=== PATIENT | male | born 1995 | race Caucasian/White ===

== ENCOUNTER → 2017-06-02 02:14 | Emergency (ER) | payer OTHER ==
[~2017-06-02 02:14] MED LIST: NS 0.9% 1000 ML* 2,000 ML IV ONE; Ondansetron INJ* 2 MG/ML VIAL IV ONE
[2017-06-02 03:50] LABS: Hematocrit 39 % (42-52); Hemoglobin 13.8 g/dl (14.0-18.0); Mean Corpuscular HGB Conc 35 g/dl (31-36); Mean Corpuscular Hemoglobin 32 pg (27-31); Mean Corpuscular Volume 91 fL (80-94); Mean Platelet Volume 9 um3 (7.4-10.4); Red Blood Count 4.35 10^6/ul (4.0-5.4); Red Cell Distribution Width 13 % (10.5-15)
[2017-06-02 04:03] LABS: Albumin 4.1 g/dL (3.2-5.2); BUN/Creatinine Ratio 13.3 (8-20); Calcium 8.6 mg/dL (8.6-10.3); EGFR African American 169.1 (>60); EGFR Non-African American 131.5 (>60); Globulin 3.2 g/dL (2-4); Potassium 3.3 mmol/L (3.5-5.0); Total Bilirubin 0.9 mg/dL (0.2-1.0); Total Protein 7.3 g/dL (6.4-8.9)
[2017-06-02 06:10] VITALS: BP 93/60
--- NOTE | 2017-06-02 06:47 | ED ---
Gloria Santo Rebecca, scribed for Hans Randhawa on 06/02/17 at 0328 . Substance Abuse/Use - HPI Summary HPI Summary: Pt is a 22 y/o M who presents to ED accompanied by two friends, c/o EtOH intoxication. Friends have been with the pt since 29, after which he has not consumed any more EtOH. Pt currently presents with unresponsiveness. Level 5 caveat due to EtOH intoxication. - History Of Current Complaint Chief Complaint: EDSubstanceAbuse Stated Complaint: ALCOHOL CONSUMPTION Hx Obtained From: Family/Director Loan - Friends Hx From Patient Unobtainable Due To: Other - Level 5 caveat due to EtOH intoxication Ingestion History: Type/Name Of Drug - EtOH Overdose Characteristics: Oral Associated Signs And Symptoms: Other: - Unresponsiveness - Allergies/Home Medications Allergies/Adverse Reactions: Allergies Allergy/AdvReac Type Severity Reaction Status Date / Time No Known Allergies Allergy Verified 06/02/17 03:31 PMH/Surg Hx/FS Hx/Imm Hx Previously Healthy: No - UNKNOWN - Level 5 caveat due to EtOH intoxication Infectious Disease History: Unable to Obtain/Confirm - Family History Known Family History: Positive: Unknown - Level 5 caveat due to EtOH intoxication - Social History Alcohol Use: Weekly Substance Use Type: Reports: None Smoking Status (MU): Never Smoked Tobacco Review of Systems - ROS Summary Review of Systems Summary: Level 5 caveat due to EtOH intoxication. Positive: Other - EtOH intoxication, unresponsiveness All Other Systems Reviewed And Are Negative: No Physical Exam - Summary Physical Exam Summary: Appearance: Well appearing, no pain distress Skin: warm, dry, reflects adequate perfusion Head/face: normal Eyes: EOMI, MARIE ENT: normal Neck: supple, nontender Respiratory: CTA, breath sounds present Cardiovascular: RRR, pulses symmetrical Abdomen: nontender, soft Bowel: present Musculoskeletal: normal, strength/ROM intact Psych: Lethargic Triage Information Reviewed: Yes Vital Signs On Initial Exam: Initial Vitals Temp Pulse Resp BP Pulse Ox 96.9 F 46 24 104/61 98 06/02/17 02:20 06/02/17 02:20 06/02/17 02:20 06/02/17 02:20 06/02/17 02:20 Vital Signs Reviewed: Yes - [place] Coma Scale Coma Scale Total: 7 Diagnostics - Vital Signs Vital Signs Temp Pulse Resp BP Pulse Ox 06/02/17 02:20 96.9 F 46 24 104/61 98 - Laboratory Lab Results: Lab Results 06/02/17 06/02/17 Range/Units 03:20 03:20 WBC 7.0 (3.5-10.8) 10^3/ul RBC 4.35 (4.0-5.4) 10^6/ul Hgb 13.8 L (14.0-18.0) g/dl Hct 39 L (42-52) % MCV 91 (80-94) fL MCH 32 H (27-31) pg MCHC 35 (31-36) g/dl RDW 13 (10.5-15) % Plt Count 194 (150-450) 10^3/ul MPV 9 (7.4-10.4) um3 Neut % (Auto) 69.7 (38-83) % Lymph % (Auto) 23.7 L (25-47) % Bremer % (Auto) 5.2 (1-9) % Eos % (Auto) 1.2 (0-6) % Baso % (Auto) 0.2 (0-2) % Absolute Neuts (auto) 4.9 (1.5-7.7) 10^3/ul Absolute Lymphs (auto) 1.7 (1.0-4.8) 10^3/ul Absolute Monos (auto) 0.4 (0-0.8) 10^3/ul Absolute Eos (auto) 0.1 (0-0.6) 10^3/ul Absolute Basos (auto) 0 (0-0.2) 10^3/ul Absolute Nucleated RBC 0 10^3/ul Nucleated RBC % 0.1 Sodium 135 (133-145) mmol/L Potassium 3.3 L (3.5-5.0) mmol/L Chloride 103 (101-111) mmol/L Carbon Dioxide 23 (22-32) mmol/L Anion Gap 9 (2-11) mmol/L BUN 10 (6-24) mg/dL Creatinine 0.75 (0.67-1.17) mg/dL Est GFR ( Amer) 169.1 (>60) Est GFR (Non-Af Amer) 131.5 (>60) BUN/Creatinine Ratio 13.3 (8-20) Glucose 116 H (70-100) mg/dL Calcium 8.6 (8.6-10.3) mg/dL Total Bilirubin 0.90 (0.2-1.0) mg/dL AST 22 (13-39) U/L ALT 16 (7-52) U/L Alkaline Phosphatase 61 (34-104) U/L Total Protein 7.3 (6.4-8.9) g/dL Albumin 4.1 (3.2-5.2) g/dL Globulin 3.2 (2-4) g/dL Albumin/Globulin Ratio 1.3 (1-3) Serum Alcohol 270 H (<10) mg/dL Result Diagrams: 06/02/17 03:20 06/02/17 03:20 Lab Statement: Any lab studies that have been ordered have been reviewed, and results considered in the medical decision making process. Course/Dx - Course Assessment/Plan: Pt is a 22 y/o M who presents to ED accompanied by two friends , c/o EtOH intoxication. Friends have been with the pt since 29, after which he has not consumed any more EtOH. Pt currently presents with unresponsiveness. Level 5 caveat due to EtOH intoxication. Serum alcohol of 270. In the ED course, pt received fluids and zofran. Upon EtOH metabolism, pt will be D/C to home with Dx of acute alcohol intoxication and a follow up with his PCP. He understands and agrees. - Diagnoses Provider Diagnoses: Alcohol intoxication Discharge - Discharge Plan Condition: Improved Disposition: HOME Patient Education Materials: Alcohol Intoxication (ED) Referrals: [facility] – [place] [facility] [Outside] The documentation as recorded by the Gloria lopez Rebecca accurately reflects the service I personally performed and the decisions made by , Hans Randhawa.
== END | disposition home or self-care (01) ==
LOC: ED 02:14
DX: F10.129 Alcohol abuse with intoxication, unspecified (principal); Y90.8 Blood alcohol level of 240 mg/100 ml or more
CPT/HCPCS: 36415; 80053; 80320; 85025; 96374; 96375; 99282; G0480; J2405